=== PATIENT | female | born 1990 | race Caucasian/White ===

== ENCOUNTER 2017-02-19 21:28 | Emergency (ER) | payer MEDICAID ==
[~2017-02-19] VITALS: Ht 152.4 cm; Wt 82.0 kg
[~2017-02-19 21:28] MED LIST: ALBUTEROL
[2017-02-20 01:02] VITALS: BP 112/59
== END 2017-02-20 01:05 | disposition home or self-care (01) ==
LOC: ER 21:28
DX: J06.9 Acute upper respiratory infection, unspecified (principal)
CPT/HCPCS: 99283

== ENCOUNTER 2019-10-14 23:53 | Emergency (ER) | payer SELFPAY ==
[~2019-10-14] VITALS: Ht 152.4 cm; Wt 86.1 kg
== END 2019-10-15 03:21 | disposition left against medical advice (07) ==
LOC: ER 23:53
DX: Z53.21 Procedure and treatment not carried out due to patient leaving prior to being seen by health care provider (principal)

== ENCOUNTER 2021-05-03 19:24 | Emergency (ER) | payer OTHER ==
[~2021-05-03] VITALS: Ht 152.4 cm; Wt 99.5 kg
[2021-05-03] MEDS ORDERED: MORPHINE SULFATE 4 MG/ML CPJ (NOT FOR IM USE) IV STA (21:09)
[2021-05-03] MEDS ORDERED: ONDANSETRON HCL 4MG/2ML INJ IV STA (21:09)
[2021-05-03] MEDS ORDERED: SODIUM CHLORIDE 0.9% 1,000 ML IV ONE (21:15)
[2021-05-03 21:37] LABS: BASOPHILS % 0.9 % (0.0-2.0); EOSINOPHILS % 3.1 % (0.0-5.0); HEMATOCRIT. 34.4 % (36.0-48.0); HEMOGLOBIN. 11.6 g/dL (12.0-16.0); LYMPHOCYTES % 31.6 % (20.0-50.0); MEAN CORPUSCULAR HEMOGLOBIN 29.3 pg (28.0-32.0); MEAN CORPUSCULAR VOLUME 86.6 fL (81.0-99.0); MEAN PLATELET VOLUME 11.8 fl (7.4-10.4); MONOCYTES % 10.7 % (2.0-8.0); NEUTROPHILS % 53.7 % (40.0-76.0); PLATELET 204 x1000/uL (130-400); RED BLOOD CELL COUNT 3.97 mill/uL (4.2-5.4); RED CELL DISTRIBUTION WIDTH 13.9 % (11.6-14.6)
[2021-05-03 21:44] LABS: CHLORIDE 108 mEq/L (98-107); INR 0.9; PROTHROMBIN TIME 10.1 sec (9.6-11.0)
[2021-05-04 01:03] LABS: CLARITY URINE CLEAR (CLEAR); COLOR URINE YELLOW (YELLOW); KETONES URINE NEGATIVE (NEGATIVE); LEUKOCYTE ESTERASE URINE TRACE (NEGATIVE); NITRITE URINE NEGATIVE (NEGATIVE); OCCULT BLOOD URINE NEGATIVE (NEGATIVE); PROTEIN URINE NEGATIVE (NEGATIVE); SPECIFIC GRAVITY URINE 1.014 (1.005-1.030); UROBILINOGEN URINE 0.2 E.U./dL (0.2-1.0)
[2021-05-04] MEDS ORDERED: HYDR-4001 MT (01:23)
[2021-05-04 02:46] VITALS: BP 116/62
== END 2021-05-04 02:47 | disposition home or self-care (01) ==
LOC: ER 19:24
DX: K42.9 Umbilical hernia without obstruction or gangrene (principal); D25.9 Leiomyoma of uterus, unspecified; R74.01 Elevation of levels of liver transaminase levels; E66.9 Obesity, unspecified; Z68.41 Body mass index [BMI] 40.0-44.9, adult; K82.8 Other specified diseases of gallbladder
CPT/HCPCS: 36415; 74177; 76705; 80053; 81003; 81025; 83690; 85025; 85610; 96361; 96374; 96375; 99285; J2270; J2405; J7030

== ENCOUNTER 2022-12-02 12:18 | Emergency (ER) | payer MEDICAID, OTHER ==
[~2022-12-02] VITALS: Ht 149.9 cm; Wt 77.0 kg
[~2022-12-02 12:18] MED LIST changes: +HYDR-4001 MT
[2022-12-02 13:08] LABS: HEMATOCRIT. 30.8 % (36.0-48.0); HEMOGLOBIN. 10.6 g/dL (12.0-16.0); MEAN CORPUSCULAR HEMOGLOBIN 30.9 pg (28.0-32.0); MEAN PLATELET VOLUME 12.8 fl (7.4-10.4); PLATELET 133 x1000/uL (130-400); RED BLOOD CELL COUNT 3.42 mill/uL (4.2-5.4); RED CELL DISTRIBUTION WIDTH 15.3 % (11.6-14.6)
[2022-12-02 13:14] LABS: CHLORIDE 106 mEq/L (98-107)
[2022-12-02 13:45] LABS: PROTHROMBIN TIME 10.9 sec (9.6-11.0)
[2022-12-02 13:47] LABS: PLATELET ESTIMATE NORMAL
[2022-12-02 15:32] VITALS: BP 108/58
== END 2022-12-02 15:34 | disposition home or self-care (01) ==
LOC: ER 12:18
DX: K75.9 Inflammatory liver disease, unspecified (principal)
CPT/HCPCS: 36415; 76705; 80053; 82140; 85025; 99284

== ENCOUNTER 2024-03-28 01:12 | Emergency (ER) | payer OTHER ==
[~2024-03-28] VITALS: Ht 149.9 cm; Wt 57.0 kg
[~2024-03-28 01:12] MED LIST changes: -ALBUTEROL; +AZAT50TA24 PO; +FOLI0.4T6 MT; +LEVO750T68 MT; +METR-167 MT; +THIA100T72 MT; +URSO300C4 PO
[2024-03-28 01:33] VITALS: O2SAT 100
[2024-03-28] MEDS: IBUPROFEN 400MG TABLET PO NR (04:04)
[2024-03-28] MEDS: ONDANSETRON HCL 4MG TABLET PO NR (04:04)
[2024-03-28] MEDS: IBUPROFEN 400MG TABLET PO ONE (05:02)
[2024-03-28] MEDS: ONDANSETRON HCL 4MG TABLET PO ONE (05:02)
[2024-03-28 06:05] VITALS: BP 105/58; PULSE 82; RESP 18; TEMP 98.6
[2024-03-28] MEDS ORDERED: IBUP-2029 MT (06:15)
[2024-03-28] MEDS ORDERED: GUAI600T26 MT (06:15)
[2024-03-28] MEDS ORDERED: ALBU6.7H15 INH (06:15)
== END 2024-03-28 07:04 | disposition home or self-care (01) ==
LOC: ER 01:12
DX: R50.9 Fever, unspecified (principal); R11.0 Nausea; R05.9 Cough, unspecified; Z98.890 Other specified postprocedural states; Z79.899 Other long term (current) drug therapy
CPT/HCPCS: 99285; 71045; Q0162

== ENCOUNTER 2024-10-14 19:29 | Emergency (ER) | payer OTHER ==
[~2024-10-14] VITALS: Ht 149.9 cm; Wt 53.0 kg
[~2024-10-14 19:29] MED LIST changes: +ALBU6.7H15 INH; +GUAI600T26 MT; +IBUP-2029 MT
[2024-10-14 19:41] VITALS: O2SAT 99
[2024-10-15] MEDS ORDERED: CLIN-116 PO (01:03)
[2024-10-15 01:59] VITALS: BP 111/62; PULSE 87; RESP 17; TEMP 37.1; O2SAT 99
== END 2024-10-15 01:59 | disposition home or self-care (01) ==
LOC: ER 19:29
DX: N61.0 Mastitis without abscess (principal); Z79.899 Other long term (current) drug therapy; Z98.890 Other specified postprocedural states
CPT/HCPCS: 10160; 76641; 99284